=== PATIENT | female | born 1955 | race African-American/Black ===

== ENCOUNTER 2016-07-10 05:32 | Day surgery (SDC) | payer OTHER ==
[2016-07-08 13:49] VITALS: BMI 27.7
[2016-07-10] MEDS ORDERED: BUPIVACAINE HCL/PF 0.5% (5MG/ML) 10 ML VIAL ONE (07:22)
--- NOTE | 2016-07-10 07:53 | HP ---
Satellite PMH - Chief Complaint Chief Complaint: left knee pain, medial meniscus tear, OA History of Present Illness: left knee pain, medial meniscus tear, OA History Source: Patient Limitations to Obtaining History: No Limitations - Past Medical History Allergies/Adverse Reactions: Allergies Allergy/AdvReac Type Severity Reaction Status Date / Time No Known Drug Allergies Allergy Verified 07/08/16 13:41 Cardiovascular: Yes: HTN - Current Medications Current Medications: Home Medications Medication Instructions Recorded Lisinopril/Hydrochlorothiazide 1 each PO DAILY 12/28/13 [Lisinopril-Hctz 10-12.5 mg Tab] Satellite Physical Exam - Physical Examination Vital Signs: Vital Signs Period Temp Pulse Resp BP Sys/Shaw Pulse Ox Last 24 Hr 97.8 F 69 18 143/77 100 General Appearance: Well Nourished ENT: Clear Lung: Clear to auscultation Heart: Regular rate & rhythm Breasts: Soft Abdomen: Soft Extremities: No edema Satellite Impression/Plan - Impression/Plan Impression: left knee pain, medial meniscus tear, OA Operative Procedure: left knee arthroscopy Date to be Performed: 07/10/16
[2016-07-10] MEDS ORDERED: MIDAZOLAM HCL 2 MG/2 ML SINGLE DOSE VIAL ONE (07:55)
[2016-07-10] MEDS ORDERED: ceFAZolin SODIUM 1 GM VIAL ONE (07:55)
[2016-07-10] MEDS ORDERED: PROPOFOL 20 ML ONE ×2 (07:55)
[2016-07-10] MEDS ORDERED: LIDOCAINE HCL/PF 2% SDV 5ML VIAL ONE (07:55)
[2016-07-10] MEDS ORDERED: ceFAZolin SODIUM 1 GM VIAL IVPB ONE (08:03)
[2016-07-10] MEDS ORDERED: DEXAMETHASONE SOD PHOSPHATE 4 MG/1 ML VIAL ONE (08:15)
[2016-07-10] MEDS ORDERED: KETOROLAC TROMETHAMINE 30 MG/1 ML VIAL ONE (08:15)
--- NOTE | 2016-07-10 08:43 | OP ---
Operative Note - Note: Operative Date: 07/10/16 Pre-Operative Diagnosis: left knee pain, medial meniscus tear, OA Operation: left knee arthroscopy, partial meniscus meniscectomy, debridement chondroplasty Post-Operative Diagnosis: Same as Pre-op Surgeon: Deepak Zacarias Anesthesiologist/VENEER GRADER: Paola Ribeiro Anesthesia: General, Local Specimens Removed: shavings Estimated Blood Loss (mls): 0 Blood Volume Replaced (mls): 0 Fluid Volume Replaced (mls): 500 Operative Report Dictated: Yes
[2016-07-10] MEDS ORDERED: oxyCODONE HCL 5 MG TABLET PO PRN (08:45)
[2016-07-10] MEDS ORDERED: ONDANSETRON 4 MG/2 ML VIAL IVPUSH PRN (08:45)
[2016-07-10] MEDS ORDERED: ACETAMINOPHEN 1000 MG/100 ML VIAL (NON FORMULARY) IVPB PRN (08:46)
[2016-07-10] MEDS ORDERED: LACTATED RINGERS SOLUTION 1,000 ML IV SCH (09:15)
[2016-07-10 11:39] VITALS: TEMP 97.5
--- NOTE | 2016-07-10 11:40 | OP ---
DATE OF OPERATION: 07/10/2016 PREOPERATIVE DIAGNOSIS: Left knee pain, medial meniscus tear, and osteoarthritis. POSTOPERATIVE DIAGNOSIS: Left knee pain, medial meniscus tear, and osteoarthritis. PROCEDURE: Left knee arthroscopy, partial medial meniscectomy, and debridement chondroplasty. SURGEON: Deepak Zacarias MD MATERIAL REQUIREMENTS PLANNING MANAGER: None. ANESTHESIA: Dr. Ribeiro. LMA anesthesia, intra-articular injection of 20 mL 0.5% Marcaine. SPECIMEN: Arthroscopic shavings. DRAINS: None. COMPLICATIONS: None. BLOOD LOSS: None. BLOOD GIVEN: None. FLUID REPLACEMENT: 500 mL. INDICATIONS: This patient is a 60-year-old female with a preoperative diagnosis of left knee pain, medial meniscus tear, and osteoarthritis. After understanding the potential risks, complications, alternatives, benefits to surgery versus nonsurgical treatment, the patient elected to undergo this procedure. DESCRIPTION OF PROCEDURE: The patient was brought to the operating room. Peripheral IV placed. IV sedation given. Then 1 g of IV Ancef was given. LMA anesthesia was induced. Ample padding was placed on the left thigh. Styrofoam ring was applied. The patient's left lower extremity was placed into the C-clamp leg schulz with ample padding throughout. The left lower extremity was prepped and draped in usual sterile fashion, elevated, exsanguinated with Esmarch bandage and tourniquet inflated to 250 mmHg. The superior and medial outflow portal was established. Lateral port was established. The arthroscope was introduced into the joint, and the medial port was established under direct visualization using a spinal needle and a No. 15 scalpel blade. A diagnostic arthroscopy was performed. In the medial compartment, the patient was seen to have an oblique, radial tear of the posterior horn of the medial meniscus. This was debrided with upbiting forceps and the curved shaver. Photographs were taken before and after. The patient did have mild osteoarthritic changes, grade 1, of the medial tibial plateau and the medial femoral condyle. Next, the intercondylar notch was directly visualized. The ACL was mildly loose but not pathologic. The PCL looked good, and this was left alone. The lateral compartment was directly visualized, and everything looked good. There was no arthritis, and the lateral meniscus looked fine. Next, the patellofemoral joint was directly visualized and here the patient had some significant osteoarthritic changes on the undersurface of the patella and areas of soft, denuded cartilage with small areas of grade 4 changes in the femoral trochlea. This area was gently debrided. It was only very mildly laterally subluxed and, therefore, lateral release was not done or necessary. The patient was seen to have large grooving, however, in the patellar portion of the medial femoral condyle. The area was copiously irrigated and washed out. All instrumentation removed. Arthroscopy portal was closed with 1 suture using 3-0 nylon. The area was then washed and dried and covered with Xeroform, 4x4 gauze, Webril, and a Coban. The tourniquet was taken down after a total tourniquet time of 20 minutes. There were no complications during the case. The patient tolerated the procedure well and was brought to the ambulatory recovery room in stable condition. Lazara [id number]
[2016-07-10 12:59] VITALS: BP 140/67; PULSE 70
--- NOTE | 2016-07-11 13:58 | PATH ---
Surgical Pathology Report Patient Name: IRAIS MONTESINOS [facility]. Rec. #: [id number] /Age/Gender: 1955 (Age: 60) / F Account: [id number] Location: [facility] SURGICAL Taken: 07/10/2016 Received: 07/10/2016 Reported: 07/11/2016 Physicians: Deepak Zacarias M.D. Specimen(s) Received SHAVINGS Clinical History Left knee meniscal tear Final Diagnosis SOFT TISSUE, LEFT KNEE, ARTHROSCOPIC SHAVINGS: SYNOVIUM AND FIBROCARTILAGE WITH MYXOHYALINE DEGENERATION. Electronically Signed Pedro Luis Norman M.D. Gross Description Received in formalin, labeled "left knee shaving" is a 4.3 x 4.0 x 0.8 cm aggregate of griffiths-yellow soft tissue fragments. A associate financial representative portion is submitted in one cassette. /07/10/201607/10/2016
== END 2016-07-10 13:06 | disposition home or self-care (01) ==
LOC: JASU-SURG 05:32
PROVIDERS: ATTEND Orthopaedic Surgery
PROC: 0SBD4ZZ Excision of Left Knee Joint, Percutaneous Endoscopic Approach (ICD-10-PCS; principal; 2016-07-10 07:30)
DX: S83.242A Other tear of medial meniscus, current injury, left knee, initial encounter (principal); X58.XXXA Exposure to other specified factors, initial encounter; Y93.9 Activity, unspecified; Y92.9 Unspecified place or not applicable; Y99.9 Unspecified external cause status; M17.12 Unilateral primary osteoarthritis, left knee
CPT/HCPCS: 88304-TC; 94760

== ENCOUNTER 2021-04-12 06:08 | Day surgery (SDC) | payer OTHER ==
[2021-04-10 15:21] VITALS: BMI 30.4
[2021-04-12] MEDS ORDERED: ROPIVACAINE HCL/PF 100 MG/20 ML VIAL ONE ×2 (06:40)
[2021-04-12] MEDS ORDERED: MIDAZOLAM HCL 2 MG/2 ML SINGLE DOSE VIAL ONE (06:40)
[2021-04-12] MEDS ORDERED: BUPIVACAINE HCL/PF 0.25% (2.5MG/ML) 10 ML VIAL ONE (09:55)
[2021-04-12] MEDS ORDERED: EPINEPHrine 1:1,000 1,000 MCG/ML ML ONE (09:56)
[2021-04-12] MEDS ORDERED: BUPIVACAINE HCL/EPINEPHRINE/PF 30 ML VIAL IJ ONE (09:57)
[2021-04-12] MEDS ORDERED: LIDOCAINE HCL 2% JELLY (5 ML/TUBE) ONE (10:06)
[2021-04-12] MEDS ORDERED: PROPOFOL 20 ML ONE ×2 (10:06→11:34)
[2021-04-12] MEDS ORDERED: SUCCINYLCHOLINE CHLORIDE 200 MG/10 ML SYRINGE ONE (10:06)
[2021-04-12] MEDS ORDERED: BUPIVACAINE 0.25% /EPI 1:200,000 10 ML VIAL NR ONE (10:40)
[2021-04-12] MEDS ORDERED: ONDANSETRON 4 MG/2 ML VIAL IVPUSH PRN (12:18)
[2021-04-12] MEDS ORDERED: ACETAMINOPHEN 1000 MG/100 ML BAG IVPB ONE (12:19)
[2021-04-12] MEDS ORDERED: oxyCODONE HCL 5 MG TABLET PO PRN ×2 (12:19)
[2021-04-12] MEDS ORDERED: LACTATED RINGERS SOLUTION 1,000 ML IV SCH (12:30)
[2021-04-12 13:18] VITALS: TEMP 97.8
[2021-04-12] MEDS ORDERED: KETOROLAC TROMETHAMINE 30 MG/1 ML VIAL IVPUSH SCH (14:00)
[2021-04-12 14:05] VITALS: BP 124/70; PULSE 68
== END 2021-04-12 14:05 | disposition home or self-care (01) ==
LOC: FASU 06:08
PROVIDERS: ATTEND Orthopaedic Surgery
PROC: 0LS30ZZ Reposition Right Upper Arm Tendon, Open Approach (ICD-10-PCS; 2021-04-12)
PROC: 0LQ14ZZ Repair Right Shoulder Tendon, Percutaneous Endoscopic Approach (ICD-10-PCS; principal; 2021-04-12 10:40)
PROC: 0RNJ4ZZ Release Right Shoulder Joint, Percutaneous Endoscopic Approach (ICD-10-PCS; 2021-04-12 10:40)
PROC: 0RBJ4ZZ Excision of Right Shoulder Joint, Percutaneous Endoscopic Approach (ICD-10-PCS; 2021-04-12 10:40)
DX: M75.111 Incomplete rotator cuff tear or rupture of right shoulder, not specified as traumatic (principal); M75.21 Bicipital tendinitis, right shoulder; M94.211 Chondromalacia, right shoulder; M65.811 Other synovitis and tenosynovitis, right shoulder; M75.01 Adhesive capsulitis of right shoulder; S43.431A Superior glenoid labrum lesion of right shoulder, initial encounter; X58.XXXA Exposure to other specified factors, initial encounter; Y93.9 Activity, unspecified; Y92.9 Unspecified place or not applicable
CPT/HCPCS: 88304-TC; 94760

== ENCOUNTER 2021-04-28 17:05 | Inpatient (IN) | payer OTHER ==
[2021-04-28] MEDS ORDERED: SODIUM CHLORIDE 0.9% 500 ML INFUS.BAG IV ONE (18:21)
[2021-04-28] MEDS ORDERED: IBUPROFEN 600 MG TABLET (FP) PO ONE ×2 (18:21→18:30)
[2021-04-28 18:35] LABS: HEMATOCRIT 35.2 % (32.4-45.2); HEMOGLOBIN 11.6 GM/dL (10.7-15.3); MCH 27.6 pg (25.7-33.7); MEAN CELL VOLUME 83.8 fl (80-96); MEAN PLT VOLUME 7.3 fl (7.5-11.1); PLATELET COUNT 313 10^3/uL (134-434); RDW 13.5 % (11.6-15.6); WHITE BLOOD COUNT 17.4 K/mm3 (4.0-10.0)
[2021-04-28 18:57] LABS: CHLORIDE 102 mmol/L (98-107); SODIUM 134 mmol/L (136-145)
[2021-04-28 18:59] LABS: CALCIUM 8.8 mg/dL (8.5-10.1)
[2021-04-28 19:00] LABS: BLOOD UREA NITROGEN 10.2 mg/dL (7-18); CO2 28 mmol/L (21-32); GLUCOSE,RANDOM 100 mg/dL (74-106)
[2021-04-28 19:03] LABS: SGOT/AST 230 U/L (15-37); SGPT/ALT 345 U/L (13-61)
[2021-04-28 19:04] LABS: BILIRUBIN,TOTAL 1.4 mg/dL (0.2-1); TOT PROT 7.2 g/dl (6.4-8.2)
[2021-04-28 19:06] LABS: ALK PHOS 206 U/L (45-117)
[2021-04-28 19:08] LABS: ANION GAP 5 MMOL/L (8-16)
[2021-04-28 19:17] LABS: EPI CELLS 19 /uL (0-25.1); HYALINE CASTS 2 /uL (0-3.1); PH,URINE 5.5 (5.0-8.0); URINE APPEARANCE CLOUDY; URINE BACTERIA 6790 /uL (0-1359); URINE BILIRUBIN 1+ (NEGATIVE); URINE COLOR DK YELLOW; URINE GLUCOSE (UA) NEGATIVE (NEGATIVE); URINE KETONE TRACE (NEGATIVE); URINE LEUK ESTERASE 3+ (NEGATIVE); URINE NITRITE POSITIVE (NEGATIVE); URINE PROTEIN 1+ (NEGATIVE); URINE WBC 1499 /uL (0-25.8)
[2021-04-28 19:26] LABS: ANISOCYTOSIS 0; MACROCYTOSIS 0
[2021-04-28 19:28] LABS: ERYTHROCYTE SEDIMENTATION RATE 67 mm/hr (0-30)
[2021-04-28 20:50] LABS: CALCIUM 8.5 mg/dL (8.5-10.1)
[2021-04-28 20:52] LABS: ALBUMIN 3.1 g/dl (3.4-5.0); BLOOD UREA NITROGEN 9.4 mg/dL (7-18)
[2021-04-28 20:54] LABS: CREATININE 0.8 mg/dL (0.55-1.3)
[2021-04-28 20:56] LABS: BILIRUBIN,TOTAL 1.4 mg/dL (0.2-1); TOT PROT 6.5 g/dl (6.4-8.2)
[2021-04-28 21:25] LABS: URINE RBC 67 /uL (0-23.9)
[2021-04-28] MEDS ORDERED: ACETAMINOPHEN 1000 MG/100 ML BAG IVPB ONE (21:30)
[2021-04-28] MEDS ORDERED: ACETAMINOPHEN INJECTION 100 ML IVPB ONE (21:50)
[2021-04-28] MEDS ORDERED: PIPERACILLIN/TAZOB 4.5 GM 4.5 GM in DEXTROSE 5%-WATER 100 ML IVPB ONE (22:10)
[2021-04-28] MEDS ORDERED: PIPERACILLIN/TAZOB 4.5 GM 4.5 GM/100 ML BAG IVPB ONE (22:18)
[2021-04-28] MEDS ORDERED: SODIUM CHLORIDE 1,000 ML IV SCH (22:45)
[2021-04-28] MEDS ORDERED: FAMOTIDINE 20 MG TABLET PO PRN (22:47)
[2021-04-28] MEDS ORDERED: HYDROCHLOROTHIAZIDE 25 MG TABLET (FP) ONE (22:57)
[2021-04-28] MEDS ORDERED: GABAPENTIN 100 MG CAPSULE ONE ×2 (22:58→23:01)
[2021-04-28] MEDS ORDERED: LOSARTAN POTASSIUM 50 MG TABLET ONE (22:58)
[2021-04-28] MEDS: GABAPENTIN 300 MG CAPSULE PO SCH (23:09)
[2021-04-29] MEDS ORDERED: SODIUM CHLORIDE 1,000 ML IV SCH (02:39)
[2021-04-29 03:41] VITALS: BMI 30.7
[2021-04-29] MEDS ORDERED: DEXTROSE 5%-WATER 100 ML IVPB ONE ×3 (05:07→20:42)
[2021-04-29] MEDS ORDERED: PIPERACILLIN/TAZOBACTAM 4.5 GM VIAL IVPB ONE ×3 (05:07→20:42)
[2021-04-29] MEDS: GABAPENTIN 300 MG CAPSULE PO SCH ×3 (05:23→21:01)
[2021-04-29] MEDS: IBUPROFEN 600 MG TABLET (FP) PO PRN ×2 (05:25→20:48)
[2021-04-29] MEDS ORDERED: PIPERACILLIN/TAZOB 4.5 GM 4.5 GM in DEXTROSE 5%-WATER 100 ML IVPB ONE (06:00)
[2021-04-29 09:20] LABS: BASO % 0.3 % (0-2.0); EOS % 0.1 % (0-4.5); HEMATOCRIT 31.8 % (32.4-45.2); HEMOGLOBIN 10.2 GM/dL (10.7-15.3); LYMPH % 4.6 % (8-40); MCH 27.2 pg (25.7-33.7); MEAN CELL VOLUME 84.9 fl (80-96); MEAN PLT VOLUME 7.7 fl (7.5-11.1); MONO % 10.7 % (3.8-10.2); NEUT % 84.3 % (42.8-82.8); PLATELET COUNT 274 10^3/uL (134-434); RBC 3.75 M/mm3 (3.60-5.2); RDW 13.2 % (11.6-15.6); WHITE BLOOD COUNT 17.4 K/mm3 (4.0-10.0)
[2021-04-29] MEDS: HEPARIN NA (PORCINE) 5,000 UNITS/ML 1ML VIAL SQ SCH ×2 (09:29→21:01)
[2021-04-29] MEDS: LOSARTAN POTASSIUM 50 MG TABLET PO SCH (09:29)
[2021-04-29] MEDS ORDERED: PNEUMOC 13-VAL CONJ-DIP CRM/PF 0.5 ML DISP.SYRIN IM ONE (10:00)
[2021-04-29] MEDS: HYDROCHLOROTHIAZIDE 12.5 MG CAPSULE (FP) PO SCH (10:02)
[2021-04-29 10:03] LABS: BLOOD UREA NITROGEN 10.4 mg/dL (7-18); CALCIUM 8.5 mg/dL (8.5-10.1)
[2021-04-29 10:07] LABS: BILIRUBIN,TOTAL 1.6 mg/dL (0.2-1); TOT PROT 5.9 g/dl (6.4-8.2)
[2021-04-29 10:17] LABS: ALBUMIN 2.7 g/dl (3.4-5.0)
[2021-04-29] MEDS: PIPERACILLIN/TAZOB 4.5 GM 4.5 GM in DEXTROSE 5%-WATER 100 ML IVPB SCH ×2 (16:01→20:49)
[2021-04-30] MEDS ORDERED: PIPERACILLIN/TAZOBACTAM 4.5 GM VIAL IVPB ONE ×3 (00:51→16:59)
[2021-04-30] MEDS ORDERED: DEXTROSE 5%-WATER 100 ML IVPB ONE ×3 (00:51→16:59)
[2021-04-30] MEDS: PIPERACILLIN/TAZOB 4.5 GM 4.5 GM in DEXTROSE 5%-WATER 100 ML IVPB SCH ×3 (01:12→17:35)
[2021-04-30] MEDS: GABAPENTIN 300 MG CAPSULE PO SCH ×3 (05:44→21:57)
[2021-04-30] MEDS: HEPARIN NA (PORCINE) 5,000 UNITS/ML 1ML VIAL SQ SCH ×2 (09:55→21:57)
[2021-04-30] MEDS: LOSARTAN POTASSIUM 50 MG TABLET PO SCH (09:55)
[2021-04-30] MEDS: HYDROCHLOROTHIAZIDE 12.5 MG CAPSULE (FP) PO SCH (09:55)
[2021-04-30 10:15] LABS: ALBUMIN 2.7 g/dl (3.4-5.0); BLOOD UREA NITROGEN 5.5 mg/dL (7-18); CALCIUM 8.4 mg/dL (8.5-10.1)
[2021-04-30 10:16] LABS: BASO % 0.7 % (0-2.0); EOS % 0.8 % (0-4.5); HEMATOCRIT 32.5 % (32.4-45.2); LYMPH % 10.1 % (8-40); MCH 28.3 pg (25.7-33.7); MCHC 33.8 g/dl (32.0-36.0); MEAN CELL VOLUME 83.7 fl (80-96); MEAN PLT VOLUME 7.7 fl (7.5-11.1); MONO % 14.8 % (3.8-10.2); NEUT % 73.6 % (42.8-82.8); PLATELET COUNT 277 10^3/uL (134-434); RBC 3.89 M/mm3 (3.60-5.2); RDW 13.8 % (11.6-15.6); RETICULOCYTES 0.72 % (0.5-1.5)
[2021-04-30 10:18] LABS: CREATININE 0.9 mg/dL (0.55-1.3)
[2021-04-30 10:20] LABS: TOT PROT 6.2 g/dl (6.4-8.2)
[2021-04-30] MEDS: ACETAMINOPHEN 325 MG TABLET (FP) PO PRN (21:57)
[2021-05-01] MEDS ORDERED: DEXTROSE 5%-WATER 100 ML IVPB ONE ×3 (01:08→16:35)
[2021-05-01] MEDS ORDERED: PIPERACILLIN/TAZOBACTAM 4.5 GM VIAL IVPB ONE ×3 (01:08→16:35)
[2021-05-01] MEDS: PIPERACILLIN/TAZOB 4.5 GM 4.5 GM in DEXTROSE 5%-WATER 100 ML IVPB SCH ×3 (01:41→17:08)
[2021-05-01] MEDS: GABAPENTIN 300 MG CAPSULE PO SCH ×3 (05:56→21:08)
[2021-05-01] MEDS: LOSARTAN POTASSIUM 50 MG TABLET PO SCH (09:29)
[2021-05-01] MEDS: HEPARIN NA (PORCINE) 5,000 UNITS/ML 1ML VIAL SQ SCH ×2 (09:29→21:07)
[2021-05-01] MEDS: HYDROCHLOROTHIAZIDE 12.5 MG CAPSULE (FP) PO SCH (09:29)
[2021-05-01 09:41] LABS: BASO % 0.6 % (0-2.0); EOS % 0.8 % (0-4.5); HEMATOCRIT 31.9 % (32.4-45.2); HEMOGLOBIN 10.8 GM/dL (10.7-15.3); LYMPH % 16.3 % (8-40); MCH 28.1 pg (25.7-33.7); MCHC 33.8 g/dl (32.0-36.0); MEAN CELL VOLUME 83.2 fl (80-96); MEAN PLT VOLUME 7.8 fl (7.5-11.1); MONO % 18.1 % (3.8-10.2); NEUT % 64.2 % (42.8-82.8); PLATELET COUNT 314 10^3/uL (134-434); RBC 3.84 M/mm3 (3.60-5.2); RDW 13.3 % (11.6-15.6); WHITE BLOOD COUNT 6.7 K/mm3 (4.0-10.0)
[2021-05-01 10:43] LABS: BLOOD UREA NITROGEN 6.1 mg/dL (7-18); CALCIUM 8.6 mg/dL (8.5-10.1)
[2021-05-01 10:44] LABS: ALBUMIN 2.6 g/dl (3.4-5.0); ANISOCYTOSIS 0; HELMET CELLS 0; HOWELL-JOLLY BODIES 0; MACROCYTOSIS 0; OVALOCYTE 0; ROULEAU 0; SICKELED CELLS 0; TARGET CELLS 0; TEAR DROP CELLS 0; TOXIC GRANULATION 0
[2021-05-01 10:47] LABS: CREATININE 0.8 mg/dL (0.55-1.3)
[2021-05-01 10:48] LABS: BILIRUBIN,TOTAL 0.6 mg/dL (0.2-1)
[2021-05-01] MEDS: ACETAMINOPHEN 325 MG TABLET (FP) PO PRN (18:41)
[2021-05-02] MEDS ORDERED: PIPERACILLIN/TAZOBACTAM 4.5 GM VIAL IVPB ONE ×2 (01:16→09:10)
[2021-05-02] MEDS ORDERED: DEXTROSE 5%-WATER 100 ML IVPB ONE ×3 (01:16→15:35)
[2021-05-02] MEDS: PIPERACILLIN/TAZOB 4.5 GM 4.5 GM in DEXTROSE 5%-WATER 100 ML IVPB SCH ×2 (01:18→10:23)
[2021-05-02] MEDS: GABAPENTIN 300 MG CAPSULE PO SCH ×3 (05:29→22:09)
[2021-05-02 09:12] LABS: BASO % 1.1 % (0-2.0); EOS % 1.5 % (0-4.5); HEMATOCRIT 34.3 % (32.4-45.2); HEMOGLOBIN 11.2 GM/dL (10.7-15.3); LYMPH % 29.4 % (8-40); MCH 27.3 pg (25.7-33.7); MCHC 32.6 g/dl (32.0-36.0); MEAN CELL VOLUME 83.8 fl (80-96); MEAN PLT VOLUME 7.5 fl (7.5-11.1); PLATELET COUNT 376 10^3/uL (134-434); RDW 13.6 % (11.6-15.6); WHITE BLOOD COUNT 5.6 K/mm3 (4.0-10.0)
[2021-05-02] MEDS: HYDROCHLOROTHIAZIDE 12.5 MG CAPSULE (FP) PO SCH (10:23)
[2021-05-02] MEDS: LOSARTAN POTASSIUM 50 MG TABLET PO SCH (10:23)
[2021-05-02] MEDS: HEPARIN NA (PORCINE) 5,000 UNITS/ML 1ML VIAL SQ SCH ×2 (10:23→22:09)
[2021-05-02] MEDS: CEFTRIAXONE 2 GM in DEXTROSE 5%-WATER 100 ML IVPB SCH (15:59)
[2021-05-02] MEDS: ACETAMINOPHEN 325 MG TABLET (FP) PO PRN (22:10)
[2021-05-03] MEDS: GABAPENTIN 300 MG CAPSULE PO SCH ×3 (05:51→21:02)
[2021-05-03] MEDS: ACETAMINOPHEN 325 MG TABLET (FP) PO PRN ×2 (05:54→18:00)
[2021-05-03 08:09] LABS: BASO % 1.1 % (0-2.0); EOS % 1.4 % (0-4.5); HEMATOCRIT 35.2 % (32.4-45.2); HEMOGLOBIN 11.7 GM/dL (10.7-15.3); MCH 27.8 pg (25.7-33.7); MCHC 33.2 g/dl (32.0-36.0); MEAN CELL VOLUME 83.8 fl (80-96); MEAN PLT VOLUME 7.5 fl (7.5-11.1); MONO % 13.3 % (3.8-10.2); NEUT % 52.2 % (42.8-82.8); PLATELET COUNT 433 10^3/uL (134-434); RDW 13.7 % (11.6-15.6); WHITE BLOOD COUNT 6.3 K/mm3 (4.0-10.0)
[2021-05-03] MEDS ORDERED: DEXTROSE 5%-WATER 100 ML IVPB ONE (08:23)
[2021-05-03 08:43] LABS: ALBUMIN 3.1 g/dl (3.4-5.0); BLOOD UREA NITROGEN 8.4 mg/dL (7-18); CALCIUM 9.4 mg/dL (8.5-10.1)
[2021-05-03 08:46] LABS: CREATININE 0.8 mg/dL (0.55-1.3)
[2021-05-03 08:47] LABS: BILIRUBIN,TOTAL 0.5 mg/dL (0.2-1); TOT PROT 7.4 g/dl (6.4-8.2)
[2021-05-03] MEDS: CEFTRIAXONE 2 GM in DEXTROSE 5%-WATER 100 ML IVPB SCH (09:35)
[2021-05-03] MEDS: LOSARTAN POTASSIUM 50 MG TABLET PO SCH (09:36)
[2021-05-03] MEDS: HEPARIN NA (PORCINE) 5,000 UNITS/ML 1ML VIAL SQ SCH ×2 (09:36→21:02)
[2021-05-03] MEDS: HYDROCHLOROTHIAZIDE 12.5 MG CAPSULE (FP) PO SCH (09:36)
[2021-05-04] MEDS: GABAPENTIN 300 MG CAPSULE PO SCH ×3 (05:21→21:56)
[2021-05-04] MEDS ORDERED: DEXTROSE 5%-WATER 100 ML IVPB ONE (09:47)
[2021-05-04] MEDS: ACETAMINOPHEN 325 MG TABLET (FP) PO PRN ×2 (10:14→21:51)
[2021-05-04] MEDS: LOSARTAN POTASSIUM 50 MG TABLET PO SCH (10:14)
[2021-05-04] MEDS: HYDROCHLOROTHIAZIDE 12.5 MG CAPSULE (FP) PO SCH (10:14)
[2021-05-04] MEDS: HEPARIN NA (PORCINE) 5,000 UNITS/ML 1ML VIAL SQ SCH ×2 (10:15→21:51)
[2021-05-04] MEDS: CEFTRIAXONE 2 GM in DEXTROSE 5%-WATER 100 ML IVPB SCH (10:15)
[2021-05-04] MEDS ORDERED: GABAPENTIN 100 MG CAPSULE PO ONE ×2 (12:10→15:15)
[2021-05-05] MEDS: GABAPENTIN 300 MG CAPSULE PO SCH ×2 (05:28→13:02)
[2021-05-05] MEDS ORDERED: DEXTROSE 5%-WATER 100 ML IVPB ONE (08:51)
[2021-05-05 09:09] LABS: BASO % 1.2 % (0-2.0); EOS % 2.2 % (0-4.5); HEMATOCRIT 35.2 % (32.4-45.2); HEMOGLOBIN 11.7 GM/dL (10.7-15.3); LYMPH % 38.6 % (8-40); MCH 27.8 pg (25.7-33.7); MCHC 33.2 g/dl (32.0-36.0); MEAN CELL VOLUME 83.7 fl (80-96); MEAN PLT VOLUME 7.1 fl (7.5-11.1); MONO % 9.3 % (3.8-10.2); NEUT % 48.7 % (42.8-82.8); PLATELET COUNT 524 10^3/uL (134-434); RBC 4.21 M/mm3 (3.60-5.2); RDW 13.6 % (11.6-15.6); WHITE BLOOD COUNT 6.6 K/mm3 (4.0-10.0)
[2021-05-05 09:20] LABS: ALBUMIN 3.2 g/dl (3.4-5.0)
[2021-05-05 09:23] LABS: CREATININE 0.7 mg/dL (0.55-1.3)
[2021-05-05 09:25] LABS: BILIRUBIN,TOTAL 0.6 mg/dL (0.2-1); TOT PROT 7.3 g/dl (6.4-8.2)
[2021-05-05] MEDS: LOSARTAN POTASSIUM 50 MG TABLET PO SCH (09:40)
[2021-05-05] MEDS: HYDROCHLOROTHIAZIDE 12.5 MG CAPSULE (FP) PO SCH (09:40)
[2021-05-05] MEDS: CEFTRIAXONE 2 GM in DEXTROSE 5%-WATER 100 ML IVPB SCH (09:41)
[2021-05-05] MEDS: ACETAMINOPHEN 325 MG TABLET (FP) PO PRN (09:42)
[2021-05-05] MEDS: HEPARIN NA (PORCINE) 5,000 UNITS/ML 1ML VIAL SQ SCH (09:42)
[2021-05-05 12:47] VITALS: BP 117/74; PULSE 74
[2021-05-05 14:04] VITALS: TEMP 98.7
== END 2021-05-05 15:15 | disposition home or self-care (01) | DRG 872 ==
LOC: JER 17:05 → JERBED 22:40 → J7W 04-29 03:07
PROVIDERS: ADMIT Specialist; ATTEND Specialist
DX: A41.51 Sepsis due to Escherichia coli [E. coli] (principal); N39.0 Urinary tract infection, site not specified; R71.0 Precipitous drop in hematocrit; I10 Essential (primary) hypertension; R79.89 Other specified abnormal findings of blood chemistry; M54.40 Lumbago with sciatica, unspecified side; R42 Dizziness and giddiness
CPT/HCPCS: 36415; 71046-TC-FY; 73030-TC-RT-FY; 76705-TC; 76775-TC; 76856-TC; 80053; 81003; 82550; 83010; 83615; 85025; 85045; 85651; 86140; 87040; 87086; 87186; 87207; 87804; 90670; 93005; 93010; 97116-GP; 97161-GP; 99285-25; C9803; J1644; U0003; U0005